=== PATIENT | female | born 1990 | race Caucasian/White ===

== ENCOUNTER 2017-04-11 09:14 | Emergency (ER) | payer SELFPAY ==
[~2017-04-11] VITALS: Ht 167.6 cm; Wt 54.4 kg
[2017-04-11 09:51] LABS: Eosinophils # (auto) 0.2 uL; Hematocrit 34.1 % (36.0-46.0); Hemoglobin 11.4 g/dL (12.2-16.2); Lymphocytes # (auto) 1.5 uL; Mean Corpuscular Hgb Conc. 33.5 g/dL (32.0-36.0); Monocytes # (auto) 0.8 uL; Monocytes % (auto) 8.3 % (0.0-12.0); Neutrophils % (auto) 72.9 % (37.0-80.0)
[2017-04-11 09:52] LABS: Basophils # (auto) 0 uL; Basophils % (auto) 0.4 % (0.0-2.0); Eosinophils % (auto) 2.2 % (0.0-7.0); Lymphocytes % (auto) 16.2 % (10.0-50.0); Mean Corpuscular Volume 92.4 fL (80.0-100.0); Neutrophils # (auto) 6.8 uL; Platelet Count (auto) 598 10^3/uL (140-450); Red Blood Cells 3.69 10^6/uL (4.0-5.20); Red Cell Distribution Width 11.8 % (11.8-14.3); White Blood Cell 9.3 10^3/uL (4.4-10.8)
[2017-04-11] MEDS ORDERED: SODIUM CHLORIDE 0.9% 1,000 ML IVB ONE (10:06)
[2017-04-11 10:08] LABS: Albumin 2.9 g/dL (3.4-5.0); Bilirubin, Total 0.1 mg/dL (0.2-1.0); Calcium 9.1 mg/dL (8.5-10.1); Potassium 4.5 mmol/L (3.5-5.1); Total Protein 8.3 g/dL (6.4-8.2)
[2017-04-11] MEDS ORDERED: KETOROLAC TROMETH 30 MG/ML 1ML VIAL IV ONE (10:15)
[2017-04-11] MEDS ORDERED: PROMETHAZINE HCL 25 MG/ML 1ML IV PRN (10:15)
[2017-04-11] MEDS ORDERED: IOHEXOL 300 MG/ML 100ML BOTTLE IJ ONE (10:16)
[2017-04-11 10:18] LABS: Urine Bacteria MANY /hpf (None Seen); Urine Blood Negative /uL (Negative); Urine Mucus FEW (None Seen); Urine Specific Gravity 1.021 (1.001-1.035); Urine WBC 34 /hpf (0 - 5)
[2017-04-11 10:34] LABS: Alcohol, Urine < 3.0 mg/dL (0-5); Amphetamine Screen, Urine POSITIVE (NEGATIVE); Barbiturate Scree,Urine NEGATIVE (NEGATIVE); Benzodiazephine Screen, Urine NEGATIVE (NEGATIVE); Cannabinoid Screen, Urine POSITIVE (NEGATIVE); Cocaine Screen, Urine NEGATIVE (NEGATIVE); Opiate Scree,Urine NEGATIVE (NEGATIVE); Phencyclidine Screen, Urine NEGATIVE (NEGATIVE)
[2017-04-11] MEDS ORDERED: cefTRIAXone 1GM/10ml IVPUSH 10 ML IV ONE (11:00)
[2017-04-11 11:56] VITALS: BP 119/68
== END 2017-04-11 13:30 | disposition home or self-care (01) ==
LOC: EDBD 09:14 → ER 09:14
DX: N39.0 Urinary tract infection, site not specified (principal); F15.10 Other stimulant abuse, uncomplicated; F12.10 Cannabis abuse, uncomplicated
CPT/HCPCS: 36415; 74177; 80053; 80307; 81001; 82150; 83690; 83735; 84702; 85025; 96361; 96374; 96375; 99285; J1885; J2550; Q9967

== ENCOUNTER 2017-04-12 10:17 | Emergency (ER) | payer MEDICAID | END 2017-04-12 10:55 | disposition left against medical advice (07) | LOC: ER 10:17 | DX: R10.9 Unspecified abdominal pain (principal); Z53.21 Procedure and treatment not carried out due to patient leaving prior to being seen by health care provider ==